=== PATIENT | female | born 2000 | race Caucasian/White ===

== ENCOUNTER 2023-05-26 13:31 | Emergency (ER) | payer OTHER ==
[~2023-05-26] VITALS: Ht 165.1 cm; Wt 98.9 kg
[2023-05-26] MEDS ORDERED: HYDROCODON-ACE1 EA11 PO (15:20)
[2023-05-26] MEDS ORDERED: CEPHALEXIN500 M1 PO (15:20)
[2023-05-26 15:25] VITALS: BP 128/85
== END 2023-05-26 15:25 | disposition home or self-care (01) ==
LOC: ED 13:31
DX: L05.01 Pilonidal cyst with abscess (principal)
CPT/HCPCS: 10080; 99282-25; A9270